=== PATIENT | female | born 1990 | race Caucasian/White ===

== ENCOUNTER 2017-04-27 08:51 | Day surgery (SDC) | payer OTHER ==
[~2017-04-27] VITALS: Ht 162.6 cm; Wt 70.2 kg
[~2017-04-27 08:51] MED LIST: LATUDA60 MG PO; PROZAC40 MG PO
[2017-04-27] MEDS ORDERED: BRINTELLIX5 MG PO (09:37)
[2017-04-27 09:51] LABS: HEMATOCRIT 34.2 % (36.0-46.0); MCV 88.6 FL (83-99)
[2017-04-27 09:56] VITALS: BP 137/74
[2017-04-27] MEDS ORDERED: AMBIEN5 MG PO (11:29)
[2017-04-27] MEDS ORDERED: MOTRIN800 MG PO (11:29)
[2017-04-27] MEDS ORDERED: DOXYCYCLINE MO100 M1 PO (11:29)
[2017-04-27 12:43] VITALS: BP 103/62
[2017-04-27 13:46] VITALS: BP 112/72
== END 2017-04-27 13:53 | disposition home or self-care (01) ==
LOC: SDC 08:51 → EDSTATUS 15:43 → SDC 15:44
PROVIDERS: Obstetrics & Gynecology
PROC: 10D17ZZ Extraction of Products of Conception, Retained, Via Natural or Artificial Opening (ICD-10-PCS; principal; 2017-04-27)
DX: O03.38 Urinary tract infection following incomplete spontaneous abortion (principal); Z3A.09 9 weeks gestation of pregnancy; I10 Essential (primary) hypertension; F41.8 Other specified anxiety disorders; Z98.84 Bariatric surgery status
CPT/HCPCS: 85014; 85018; 86900; 86901; 88305; J1100; J1170; J1885; J2250; J2405; J3010; Q0175